=== PATIENT | male | born 1985 | race Caucasian/White ===

== ENCOUNTER → 2018-02-14 | Outpatient (CLI) | payer BC ==
--- NOTE | 2018-02-14 13:37 | XR ---
EXAMINATION TYPE: XR chest 2V DATE OF EXAM: 02/14/2018 COMPARISON: 10/15/2008 HISTORY: Chest pain TECHNIQUE: Frontal and lateral views of the chest are obtained. FINDINGS: There is no focal air space opacity. No evidence for pneumothorax. No pleural effusion. The cardiac silhouette size is within normal limits. The osseous structures are grossly intact. IMPRESSION: 1. No acute cardiopulmonary process.
== END ==
LOC: RADXRMAIN 09:38
PROVIDERS: ATTEND Family Medicine
DX: R07.89 Other chest pain (principal)
CPT/HCPCS: 71046

== ENCOUNTER → 2018-04-04 | Outpatient (CLI) | payer BC ==
--- NOTE | 2018-04-04 11:36 | EST ---
EXERCISE STRESS DATE OF SERVICE: 04/04/2018 AGE: 33 SEX: Male HT: 74 WT: 210 PROTOCOL: Luis STAGE: III DURATION OF EXERCISE: 11 minutes HEART RATE REST: 67 BLOOD PRESSURE REST: 117/73 MAXIMUM HEART RATE ACHIEVED: 162 MAXIMUM BLOOD PRESSURE: 172/57 85% MPHR: 161 100% MPHR: 189 METS: 12 INDICATIONS: Chest pain. CLINICAL INFORMATION: Baseline EKG shows sinus rhythm, normal axis, normal intervals. Patient exercised on Luis protocol for a total of 11 minutes, achieving 12 METs, 85% of predicted maximal heart rate without chest pain or diagnostic ST-segment depression. CONCLUSIONS: 1. Excellent exercise tolerance. 2. Negative stress test by EKG criteria. MMODL / IJN: [id number] /
== END | disposition home or self-care (01) ==
LOC: RADNMMAIN 08:36
PROVIDERS: ATTEND Family Medicine
DX: R07.89 Other chest pain (principal)
CPT/HCPCS: 93017